=== PATIENT | male | born 1965 | race Caucasian/White ===

== ENCOUNTER 2017-01-12 08:37 | Emergency (ER) | payer OTHER ==
[2017-01-12 08:48] VITALS: BP 145/89; PULSE 81; TEMP 98.1; BMI 36.0
[2017-01-12] MEDS ORDERED: ACETAMINOPHEN 500 MG TABLET (FP) PO ONE (09:02)
--- NOTE | 2017-01-12 09:04 | PDOC ---
History of Present Illness - General Chief Complaint: Injury Stated Complaint: SLIP/FALL (EMPLOYEE) History Source: Patient Exam Limitations: No Limitations - History of Present Illness Initial Comments: 01/13/17 08:12 Chief complaint: Fell forward twisting his torso in the parking lot here complaining of lower back pain History of present illness: Patient is a 51-year-old male employee for [employer] who works in with history of myasthenia gravis, non-insulin- dependent diabetes, HTN, hyperlipidemia here today after he was trying to climb over a guardrail the parking lot and slipped and fell forward falling on the ground twisting his back as he went down. Patient reports having lower back pain worse on left without any radiation down the legs or any saddle anesthesia or any incontinency. Patient reports the pain currently is an 8 out of 10. She took 500 mg of Tylenol or to coming over to the ER. Pain lower back is worse with movement. 01/13/17 08:15 01/13/17 08:16 Occurred: reports: this morning Severity: reports: severe (lower back pain worse on left ) Pain Location: reports: back (lower worse on left) Method of Injury: Yes: fall Modifying Factors: improves with: None Loss of Consciousness: no loss of consciousness Associated Symptoms (Fall): denies symptoms Past History - Past Medical History Allergies/Adverse Reactions: Allergies Allergy/AdvReac Type Severity Reaction Status Date / Time No Known Allergies Allergy Verified 01/12/17 08:48 Home Medications: Ambulatory Orders Cyclobenzaprine HCl [Flexeril 10 mg] 10 mg PO Q8H PRN #21 tablet MDD 30 mg 01/12 Metformin HCl [Glucophage] 500 mg PO BID 01/12/17 Naproxen [Naprosyn -] 500 mg PO BID PRN #14 tablet 01/12/17 Prednisone [Deltasone] 20 mg PO DAILY 01/12/17 Ramipril 10 mg PO DAILY 01/12/17 Diabetes: Yes (type 2 ) HTN: Yes Hypercholesterolemia: Yes Other medical history: MYESTENIA GRAVIS - Psycho/Social/Smoking Cessation Hx Anxiety: No Suicidal Ideation: No Smoking History: Current every day smoker Number of Cigarettes Smoked Daily: 0 Cigars Per Day: 1 Information on smoking cessation initiated: No Hx Alcohol Use: Yes (SOCIAL) Drug/Substance Use Hx: No Substance Use Type: None Review of Systems - Review of Systems Able to Perform ROS?: Yes Constitutional: No: Symptoms Reported HEENTM: No: Symptoms Reported Respiratory: No: Symptoms reported Cardiac (ROS): No: Symptoms Reported ABD/GI: No: Symptoms Reported : No: Symptoms Reported Musculoskeletal: Yes: Back Pain (lumbar worse on left ) Integumentary: No: Symptoms Reported Neurological: No: Symptoms reported *Physical Exam - Vital Signs Last Vital Signs Temp Pulse Resp BP Pulse Ox 98.1 F 81 18 145/89 98 01/12/17 08:44 01/12/17 08:44 01/12/17 08:44 01/12/17 08:44 01/12/17 08:44 - Physical Exam General Appearance: Yes: Appropriately Dressed Neck: negative: Tender, Rigid, Decreased range of motion, Lymphadenopathy (R), Lymphadenopathy (L), Rigidity, Tender lateral, Tender midline Respiratory/Chest: positive: Lungs Clear, Normal Breath Sounds. negative: Chest Tender, Respiratory Distress Cardiovascular: positive: Regular Rhythm, Regular Rate, S1, S2 Musculoskeletal: positive: Normal Inspection, Decreased Range of Motion (at waist ), Vertebral Tenderness (lumbar mid ), Other (tenderness along paraspinal muscle lumbar b/l ). negative: CVA Tenderness, CVA Tenderness (R), CVA Tenderness (L) Extremity: positive: Normal Inspection, Normal Range of Motion, Pelvis Stable Integumentary: positive: Normal Color Neurologic: positive: Alert, Normal Response, Motor Strength 5/5 (lower and upper extremities), Respond to painful stimul (b/l legs), Responsive. negative : Numbness, Sensory Deficit (legs ) Deep Tendon Reflexes: Knee (L): 4+, Knee (R): 4+ Medical Decision Making - Medical Decision Making 01/12/17 10:17 Patient is a 51-year-old male employee for [employer] who works in [place] with history of myasthenia gravis, [id number] diabetes, here today after he was trying to climb over a guardrail the parking lot and slipped and fell forward falling on the ground twisting his back as he went down. Patient reports having lower back pain without any radiation down the legs or any saddle anesthesia or any incontinency. Patient reports the pain currently is an 8 out of 10. She took 500 mg of Tylenol or to coming over to the ER. R/O lamonte abnormality lumbar sacral spine PLAN: xray lumbar sacral spine mild degenerative changes noted diffusely with disc space most marked at T11-12 and T12-L1 per per Dr. Alvarez naprosyn 500 mg now than bid prn pain # 14 tabs flexeril 10 mg po every 8 hr prn muscle spasm follow up with orthopedist 01/13/17 08:15 01/13/17 08:17 *DC/Admit/Observation/Transfer Diagnosis at time of Disposition: Fall Qualifiers: Encounter type: initial encounter Qualified Code(s): W19.XXXA - Unspecified fall, initial encounter Low back strain Qualifiers: Encounter type: initial encounter Qualified Code(s): S39.012A - Strain of muscle, fascia and tendon of lower back, initial encounter - Discharge Dispostion Disposition: HOME Condition at time of disposition: Stable - Prescriptions Prescriptions: Cyclobenzaprine HCl [Flexeril 10 mg] 10 mg PO Q8H PRN #21 tablet MDD 30 mg PRN Reason: Muscle Spasms Naproxen [Naprosyn -] 500 mg PO BID PRN #14 tablet PRN Reason: Pain - Referrals Referrals: Ren Parra [Primary Care Provider] - Zack Juarez MD [Staff Physician] - - Patient Instructions Additional Instructions: Make sure you take Naprosyn on a full stomach if any abdominal discomfort stop taking Naprosyn and start taking acetaminophen Apply ice for 15 minutes every hour while awake today Follow-up with orthopedist if pain continues within the next few days Return to emergency room if symptoms worsen any radiation of pain down the legs or numbness of legs or groin Patient voiced understanding of discharge instructions and all questions were answered - Post Discharge Activity Work/School Note: Back to Work
[2017-01-12] MEDS ORDERED: NAPROXEN 500 MG TABLET (FP) ONE (09:22)
[2017-01-12] MEDS ORDERED: NAPROXEN 500 MG TABLET (FP) PO ONE (09:22)
== END 2017-01-12 10:25 | disposition home or self-care (01) ==
LOC: JERFT 08:37
DX: S39.012A Strain of muscle, fascia and tendon of lower back, initial encounter (principal); W19.XXXA Unspecified fall, initial encounter; Y93.9 Activity, unspecified; Y92.239 Unspecified place in hospital as the place of occurrence of the external cause; Y99.0 Civilian activity done for income or pay; I10 Essential (primary) hypertension; E11.9 Type 2 diabetes mellitus without complications; E78.00 Pure hypercholesterolemia, unspecified; G70.00 Myasthenia gravis without (acute) exacerbation
CPT/HCPCS: 72100-TC; 99281-25

== ENCOUNTER 2025-04-04 14:06 | Emergency (ER) | payer OTHER ==
[2025-04-04 14:15] VITALS: BP 130/68; PULSE 70; RESP 20; TEMP 98.2; BMI 29.7
[2025-04-04] MEDS ORDERED: DIPHTH,PERTUSS(ACELL),TET 0.5 ML DISP.SYRIN IM ONE (15:34)
[2025-04-04] MEDS ORDERED: ACETAMINOPHEN 325 MG TABLET (FP) ONE (15:34)
[2025-04-04] MEDS: DIPHTH,PERTUSS(ACELL),TET 0.5 ML DISP.SYRIN IM ONE (15:51)
[2025-04-04] MEDS: ACETAMINOPHEN 325 MG TABLET (FP) PO ONE (15:54)
[2025-04-04 16:10] LABS: ABSOLUTE IMMATURE GRANULOCYTES 0.01 x10^3/uL (0.0-0.031); BASOPHILS # 0.02 x10^3/uL (0.01-0.08); EOSINOPHIL % 3.1 % (0.8-7.0); EOSINOPHILS # 0.19 x10^3/uL (0.04-0.54); MCHC 34.4 g/dl (32.3-36.5); MEAN CELL VOLUME 97.0 fl (79.0-92.2); MEAN PLT VOLUME 10.0 fl (9.4-12.4); MONOCYTE # 0.87 x10^3/uL (0.30-0.82); MONOCYTE % 14.3 % (5.3-12.2); RDW 13.6 % (12.2-16.1)
[2025-04-04 16:28] LABS: GLUCOSE,RANDOM 118.0 mg/dL (74-106); TOT PROT 7.4 g/dl (6.4-8.2)
[2025-04-04 16:29] LABS: CO2 29.0 mmol/L (21-32)
[2025-04-04 16:30] LABS: ALK PHOS 80.0 U/L (40-150)
[2025-04-04 16:33] LABS: CREATININE 0.92 mg/dL (0.55-1.3); SGOT/AST 29.0 U/L (5-34); SGPT/ALT 41.0 U/L (0-55)
[2025-04-04 17:00] LABS: HIV INTERPRETATION NEGATIVE (NEGATIVE)
[2025-04-04 17:01] LABS: HEPATITIS B SURF AG NON-MATERN NON-REACTIVE (NONREACTIVE)
[2025-04-04 17:02] LABS: HCV DIAGNOSTIC IN-HOUSE W/RFLX NON-REACTIVE (NONREACTIVE)
== END 2025-04-04 16:31 | disposition home or self-care (01) ==
LOC: JERFT 14:06
PROC: 3E0234Z Introduction of Serum, Toxoid and Vaccine into Muscle, Percutaneous Approach (ICD-10-PCS; principal; 2025-04-04)
DX: S50.811A Abrasion of right forearm, initial encounter (principal); Z23 Encounter for immunization; W45.0XXA Nail entering through skin, initial encounter; Y99.0 Civilian activity done for income or pay
CPT/HCPCS: 36415; 73110-TC-RT-FY; 80053; 84460; 85025; 86704; 86803; 87340; 87389; 87517; 90715; 99284-25